=== PATIENT | male | born 1990 | race Caucasian/White ===

== ENCOUNTER 2021-02-24 15:48 | Emergency (ER) | payer SELFPAY | END 2021-02-24 18:54 | disposition home or self-care (01) | LOC: ERS 15:48 | DX: M25.511 Pain in right shoulder (principal); F17.210 Nicotine dependence, cigarettes, uncomplicated; X50.1XXA Overexertion from prolonged static or awkward postures, initial encounter ==

== ENCOUNTER 2021-04-21 03:21 | Emergency (ER) | payer SELFPAY | END 2021-04-21 05:28 | disposition home or self-care (01) | LOC: ERS 03:21 | DX: F10.129 Alcohol abuse with intoxication, unspecified (principal); S00.01XA Abrasion of scalp, initial encounter; F17.210 Nicotine dependence, cigarettes, uncomplicated; Y04.8XXA Assault by other bodily force, initial encounter | CPT/HCPCS: 70450; 72125 ==